=== PATIENT | female | born 1960 | race Caucasian/White ===

== ENCOUNTER 2025-02-24 13:21 | Outpatient (CLI) | payer BC, SELFPAY ==
--- NOTE | 2025-02-24 13:30 | CTR_ITS ---
PROCEDURE INFORMATION: Exam: CT Abdomen And Pelvis With Contrast Exam date and time: 02/24/2025 1:46 PM Age: 64 years old Clinical indication: Prior surgery; Surgery date: 6+ months; Surgery type: Hyst, appy, neuroendocrine anal cancer; Nausea x 2 months; Additional info: Chronic nausea TECHNIQUE: Imaging protocol: Computed tomography of the abdomen and pelvis with contrast. Radiation optimization: All CT scans at this facility use at least one of these dose optimization techniques: automated exposure control; mA and/or kV adjustment per patient size (includes targeted exams where dose is matched to clinical indication); or iterative reconstruction. Contrast material: OMNIPAQUE 350; Contrast volume: 100 ml; Contrast route: INTRAVENOUS (IV); COMPARISON: No relevant prior studies available. RADIATION DOSE METRICS: Total DLP (mGy-cm): 281.87 FINDINGS: Lungs: There is a partially visualized lobulated mass present in the right lower lobe measuring at least 6.3 x 3.3 cm. A 2.2 cm mass with irregular borders is present in the left lower lobe posteriorly. Liver: Unremarkable. No mass. Gallbladder and biliary ducts: Normal. No calcified stones. No ductal dilation. Pancreas: Normal. No ductal dilation. Spleen: Normal. No splenomegaly. Adrenal glands: Normal. No mass. Kidneys and ureters: Normal. No hydronephrosis. Stomach and bowel: Unremarkable. No obstruction. No mucosal thickening. Appendix: The appendix is surgically absent. Intraperitoneal space: Unremarkable. No free air. No significant fluid collection. Vasculature: Unremarkable. No abdominal aortic aneurysm. Lymph nodes: Unremarkable. No enlarged lymph nodes. Urinary bladder: Unremarkable as visualized. Reproductive: Status post hysterectomy. Bones/joints: There are mild degenerative changes of the bony structures. There is disc space narrowing with marginal osteophytes at L1-L2. Soft tissues: Unremarkable. CT/CT abdomen pelvis w con* [id number] IMPRESSION: 1. Bilateral lower lobe masses suspicious for metastatic disease given the patient's history. Follow-up with a CT of the chest for further evaluation. 2. Status post hysterectomy. 3. Additional findings as described above.
[2025-02-24] MEDS: iohexol 350 mg/mL 500 mL Btl (per mL) IV (13:59)
== END 2025-02-24 13:22 | disposition home or self-care (01) ==
LOC: RAD 13:26
PROVIDERS: PCP Electrodiagnostic Medicine; Visit Provider Electrodiagnostic Medicine
DX: R11.0 Nausea (principal); R91.8 Other nonspecific abnormal finding of lung field; Z90.710 Acquired absence of both cervix and uterus; M47.816 Spondylosis without myelopathy or radiculopathy, lumbar region
CPT/HCPCS: 74177